=== PATIENT | male | born 1960 | race Caucasian/White ===

== ENCOUNTER → 2022-01-27 10:35 | Outpatient (BNVA) | payer MEDICARE, OTHER, SELFPAY | PROVIDERS: PCP Internal Medicine; Visit Provider Psychiatry & Neurology Neurology | DX: G30.9 Alzheimer's disease, unspecified (principal); F02.80 Dementia in other diseases classified elsewhere, unspecified severity, without behavioral disturbance, psychotic disturbance, mood disturbance, and anxiety; G40.909 Epilepsy, unspecified, not intractable, without status epilepticus | CPT/HCPCS: 99202 ==

== ENCOUNTER → 2022-08-04 09:27 | Outpatient (BNVA) | payer MEDICARE, OTHER, SELFPAY | PROVIDERS: PCP Internal Medicine; Visit Provider Nurse Practitioner Family | DX: G30.9 Alzheimer's disease, unspecified (principal); F02.80 Dementia in other diseases classified elsewhere, unspecified severity, without behavioral disturbance, psychotic disturbance, mood disturbance, and anxiety; G40.909 Epilepsy, unspecified, not intractable, without status epilepticus; L89.203 Pressure ulcer of unspecified hip, stage 3; Z79.899 Other long term (current) drug therapy | CPT/HCPCS: 99212 ==

== ENCOUNTER 2022-09-14 12:42 | Outpatient (RCR) | payer MEDICARE, OTHER, SELFPAY | END 2022-09-28 16:00 | disposition home or self-care (01) | LOC: HO.WCC 12:42 | PROVIDERS: Visit Provider Surgery | DX: L89.154 Pressure ulcer of sacral region, stage 4 (principal); L89.220 Pressure ulcer of left hip, unstageable; L89.210 Pressure ulcer of right hip, unstageable; F03.C0 Unspecified dementia, severe, without behavioral disturbance, psychotic disturbance, mood disturbance, and anxiety; Z79.899 Other long term (current) drug therapy | CPT/HCPCS: 11043; 11044; 87070; 87073; 87076; 87077; 87186; 87205; 88307; 88311; 99214 ==

== ENCOUNTER 2022-09-28 14:34 | Emergency (ER) | payer MEDICARE, OTHER, SELFPAY ==
--- NOTE | 2022-09-28 14:44 | ED_ITS ---
HPI - General Adult General Chief complaint: General Medical Stated complaint: coming from wound care Time Seen by Provider: 09/28/22 14:43 Source: family and EMS Mode of arrival: EMS Limitations: other (Dementia) History of Present Illness HPI narrative: 61-year-old male presents for possible admission for comfort measures only, hospice and case management evaluation. Patient has history of dementia and cachexia. He was sent from wound care with significant wounds requiring wet-to-dry dressing on all wounds. He has bilateral sacral wounds. According to family, they have been managing his care at home with frequent wound checks and wound care. They find that his wounds are getting progressively worse d espite aggressive treatment at home and at outpatient facilities. They feel that his quality of life is significantly diminished any continues to get progressively worse. They are requesting hospice/comfort measures only. They do not wish any aggressive interventions. They are comfortable with minimally invasive treatments. He is DNR DNI. Related Data Home Medications Medication Instructions Recorded Confirmed atorvastatin 40 mg tablet 40 mg PO DAILY 01/02/22 08/04/22 aspirin 81 mg tablet,delayed 81 mg PO DAILY 01/27/22 08/04/22 release ascorbic acid (vitamin C) 500 mg 500 mg PO BID 08/04/22 08/04/22 tablet (Vitamin C) finasteride 5 mg tablet 5 mg PO DAILY 08/04/22 08/04/22 methenamine hippurate 1 gram tablet 1 g PO BID 08/04/22 08/04/22 naproxen 500 mg tablet 500 mg PO BID PRN 08/04/22 08/04/22 tamsulosin 0.4 mg capsule 0.4 mg PO DAILY 08/04/22 08/04/22 Previous Rx's Medication Instructions Recorded memantine 10 mg tablet 10 mg PO BID 90 days #180 tabs 01/27/22 levetiracetam 100 mg/mL oral 1,500 mg (15 mL) PO BID 90 days 05/08/22 solution #2,700 mL cholecalciferol (vitamin D3) 25 25 mcg PO DAILY 30 days #30 tabs 08/04/22 mcg (1,000 unit) tablet polyethylene glycol 3350 17 17 g PO .COMPLEX 30 days #238 grams 08/04/22 gram/dose oral powder (Miralax) hospital bed #1 ea 08/11/22 Allergies Allergy/AdvReac Type Severity Reaction Status Date / Time Penicillins Allergy Intermediate Rash Verified 01/27/22 10:44 Review of Systems Review of Systems: Yes Unobtainable due to mental status PMFSH Past Medical History Medical History Alzheimer's dementia Seizure disorder Surgical History H/O knee surgery H/O shoulder surgery Family History Family History Family/Other Diabetes mellitus Seizure disorder Dementia Social History Social History Alcohol intake: former Patient Tobacco Use Status: Never used Tobacco Advance Directives: Yes Advance Directives Information Provided: No Advance Directives on File: No Physical Exam ED Vital Signs: Vital Signs - 24 hr 09/28/22 14:57 Pulse Rate 73 Blood Pressure 121/42 L BMI result Body Mass Index 15.1 GEN: Cachectic, chronically ill-appearing, nonverbal HEENT: Normocephalic, atraumatic, normal external ears, nose appears normal, no oropharyngeal edema or exudates Eyes: Normal to appearance Neck: Supple, no lymphadenopathy Respiratory: CTAB, nonlabored respirations Cardiovascular: Regular rate and rhythm, no murmurs rubs or gallops Abdomen: Soft, nontender, nondistended, no guarding, no rebound, scaphoid Back: No CVA tenderness Extremities: Right hand swelling Neurologic: No focal neurologic deficits Skin: See photos, decubiti ulcer Skin Other: Course Course Course Narrative: Case management is involved in patient's care. At this time, patient does not appear to be able to go to hospice care at least the facility for financial reasons. Patient will remain in the emergency department overnight pending re- evaluation and to assist with developing an appropriate plan for going home. I will place the patient in physician observation at 6:00 a.m. at night. Ultimate disposition pending tomorrow. Will order a medication reconciliation. Reevaluation(s) Reevaluation #1: Is 10:00 a.m. at night. Patient will be signed out to the oncoming provider pending disposition tomorrow morning Time: 22:00 Medical Decision Making Medical Decision Making MDM Narrative: 61-year-old male with dementia, significant acute but I ulcer presents for evaluation of comfort measures and hospice admission. At this time, I will make the patient DNR DNI. Had extensive conversations with the and son. They would like him placed in a facility near [place]. They are aware that DNR DNI is necessary in order to start these evaluations and management. They are agreeable to minimally invasive types of treatments but certainly no significant procedures, parental feeding, tube feeding, etc.. I have contacted Case Management and put in a hospice consult and case management consultation. Family is quite comfortable with this course of action. Differential Diagnosis Differential Diagnoses: The differential diagnosis associated with the presentation includes (Failure to thrive, dementia, malnutrition, under nutrition, chronic disease) Admission/Observation Consideration of admission/observation: Escalation of care including admission/observation considered Consult Healthcare Provider The the Case Management, hospice team Independent Historian Clinical information obtained from an independent historian. History obtained from or confirmed by: Spouse and EMS External Record Review We need wound care: Dressing changes would include wet to dry. Tests considered The following testing was considered but not selected: None given recommendations for hospice/comfort measures Prescription Management I considered prescription management with: Pain Medication Chronic Conditions Patient?s care impacted by: Other (Dementia) Discharge Plan Discharge Clinical Impression: Alzheimer's dementia, Pressure ulcer of trochanter, stage 3, Sacral decubitus ulcer, stage IV, Cachexia Patient Disposition: Still a Patient Prescriptions: No Action levetiracetam 100 mg/mL solution 1,500 mg PO BID 90 Days Qty: 2700 1RF ([facility]) hospital bed Kit See Rx Instructions .Route Qty: 1 0RF Rx Instructions: w/ pressure relieveing air mattress atorvastatin 40 mg tablet 40 mg PO DAILY aspirin 81 mg tablet,delayed release (DR/EC) 81 mg PO DAILY memantine 10 mg tablet 10 mg PO BID 90 Days Qty: 180 4RF naproxen 500 mg tablet 500 mg PO BID PRN finasteride 5 mg tablet 5 mg PO DAILY methenamine hippurate 1 gram tablet 1 g PO BID ascorbic acid (vitamin C) [Vitamin C] 500 mg tablet 500 mg PO BID tamsulosin 0.4 mg capsule 0.4 mg PO DAILY cholecalciferol (vitamin D3) 25 mcg (1,000 unit) tablet 25 mcg PO DAILY 30 Days Qty: 30 6RF polyethylene glycol 3350 [Miralax] 17 gram/dose powder 17 g PO .COMPLEX 30 Days Qty: 238 3RF Rx Instructions: 17 grams orally prn no BM after 2 days;
[2022-09-28 14:57] VITALS: BP 121/42; PULSE 67; PULSE 73; BMI 15.1
--- NOTE | 2022-09-28 15:21 | PC.NURSE ---
pt brought by ems from wound care clinic per ems. Wounds located in pelvic area. Pt has advanced dementia and unable to respond to questions. Pt is on comfort measures only. This RN and PCT changed patient into hospital attire and warm blankets given. Case management consult and hospice referral put in by MD. and son at bedside and aware of plan of care.
--- NOTE | 2022-09-28 17:44 | MHC.EDTECH ---
Rounded on patient and he is found to be clean/dry. asked if patient was going to eat today and says she normally feeds him soft foods at home, stating he last ate oatmeal this morning. Relayed information to RNs and they are putting in pureed diet for Pt. aware.
--- NOTE | 2022-09-28 18:32 | MHC.CM.ED ---
CM met with patient and family at request of Dr. Fernandez. Pt is lethargic, slightly opens eyes to name. Emaciated. Multiple decubiti in sacral/hip areas. Pt noted with unpleasant odor. Advanced dementia. Family has been caring for him since 2018. Uses W/C. Eats thicken food, oatmeal, mashed potatoes, chopped meats. Needs to be feed. Pt is total care. Did work for [employer]. and son provide all care. Pt has [facility], who now come weekly for wound care. Pt is seen at [facility]. PCP at [facility] in [facility] Darline Barillas MD. cannot find HCP, but states she is the HCP. No HCP on file. [facility] may have on file. Unable to complete with patient due to altered mentation and lethargy. Unable to determine if patient understands what is being said to him. Family is requesting hospice in a facility. , Jennifer, states her has a pension and does not qualify for . CM explained to family that Medicare and commercial insurance do not pay for LTC and that they would need to pay for room and board at any facility and that Hospice would pay for the medical care. Family does not have funds to pay for hospice care in a facility. Patient does not have LTC insurance. Family does not have savings that could pay for care. thought that Medicare would pay. states they will have to take patient home and continue to care for him. Given listing of home health agencies that could help with care, even if they could hire help for 4 hours/week. Also, spoke with family about speaking with other family members to enlist some care to given them help. Referrals made to [facility] financial services for any assistance with possible MH application ( if sure they do not qualify). Referral made to [facility] and [facility] for informational meeting. Pt will stay overnight to provide respite for family and allow them to speak with family members. Dr. Fernandez aware and aggress with plan. Pt now tells me that hospice called her when CM was speaking with the doctor to arrange a meeting for tomorrow with patient and family. returned T/C. CM left a message with [facility] Worker regarding [facility] referrals placed for informational meeting for hospice and that patient would stay overnight in the ED, with expected return home tomorrow. Requested Hospice meet with family in ED. D/C plan: Home with hospice. Family states they will transport patient home.
--- NOTE | 2022-09-28 18:48 | MHC.EDTECH ---
This patient found to be completely incontinent of urine when this tech rounded on Pt. This tech and two other ED techs helped clean Pt, do a full bedding change and reposition Pt with pillows. Warm blankets provided.
--- NOTE | 2022-09-28 20:54 | PC.NURSE ---
Pt repositioned, wound dressings cleaking with foul odor. Right hip unstageable black eschaar cleaned with wound spray and dressed with pink foam, Lg coccyx unstageable with possible tunneling clened with wound spray and dressed wet to dry with pink foam. Medium sized wound to left hip with griffiths tissue unstageable washed with wound spray and dressed with pink foam. Pt groin red and irritated cleaned dried and barrier cream applied. [place] cath applied.
[2022-09-28] MEDS: Acetaminophen Supp 650 MG SUPP.RECT PR (21:15)
[2022-09-28 23:00] VITALS: BP 98/46; PULSE 87; RESP 16
--- NOTE | 2022-09-29 01:39 | MHC.EDTECH ---
pt transferred into hospital bed.
--- NOTE | 2022-09-29 05:30 | PC.NURSE ---
Pt resting in bed, changed over to hospital bed from strecther, turned and repositioned. Pt appears comfortable at this time.
--- NOTE | 2022-09-29 08:32 | PC.NURSE ---
pt is currently resting in the stretcher, respirations shallow, about 12 per min, left eye lid appears swollen and the left arm/hand swelling as well. pt repositioned to his right side and supported with pillows, attempted to feed the pt but pt is not really responding at this time,
[2022-09-29 08:36] VITALS: RESP 12
--- NOTE | 2022-09-29 10:24 | ED.GENADULT ---
HPI - General Adult General Chief complaint: General Medical Stated complaint: coming from wound care Time Seen by Provider: 09/28/22 14:43 Source: family and EMS Mode of arrival: EMS Limitations: other (Dementia) Related Data Home Medications Medication Instructions Recorded Confirmed atorvastatin 40 mg tablet 40 mg PO DAILY 01/02/22 08/04/22 aspirin 81 mg tablet,delayed 81 mg PO DAILY 01/27/22 08/04/22 release ascorbic acid (vitamin C) 500 mg 500 mg PO BID 08/04/22 08/04/22 tablet (Vitamin C) finasteride 5 mg tablet 5 mg PO DAILY 08/04/22 08/04/22 methenamine hippurate 1 gram tablet 1 g PO BID 08/04/22 08/04/22 naproxen 500 mg tablet 500 mg PO BID PRN 08/04/22 08/04/22 tamsulosin 0.4 mg capsule 0.4 mg PO DAILY 08/04/22 08/04/22 Previous Rx's Medication Instructions Recorded memantine 10 mg tablet 10 mg PO BID 90 days #180 tabs 01/27/22 levetiracetam 100 mg/mL oral 1,500 mg (15 mL) PO BID 90 days 05/08/22 solution #2,700 mL cholecalciferol (vitamin D3) 25 25 mcg PO DAILY 30 days #30 tabs 08/04/22 mcg (1,000 unit) tablet polyethylene glycol 3350 17 17 g PO .COMPLEX 30 days #238 grams 08/04/22 gram/dose oral powder (Miralax) hospital bed #1 ea 08/11/22 Allergies Allergy/AdvReac Type Severity Reaction Status Date / Time Penicillins Allergy Intermediate Rash Verified 01/27/22 10:44 [facility] Past Medical History Medical History Alzheimer's dementia Seizure disorder Surgical History H/O knee surgery H/O shoulder surgery Family History Family History Family/Other Diabetes mellitus Seizure disorder Dementia Social History Social History Alcohol intake: former Patient Tobacco Use Status: Never used Tobacco Physical Exam ED Vital Signs: Vital Signs - 24 hr 09/28/22 14:57 09/28/22 23:00 09/29/22 08:36 Pulse Rate 73 87 Respiratory Rate 16 12 Blood Pressure 121/42 L 98/46 L BMI result Body Mass Index 15.1 Medications Administered Discontinued Medications Generic Name Dose Route Start Last Admin Trade Name Noe PRN Reason Stop Dose Admin Acetaminophen 650 mg 09/28/22 21:01 09/28/22 21:15 Acetaminophen Supp 650 Mg Supp.Rect CO 09/28/22 21:02 650 mg ONCE ONE Administration Discharge Plan Discharge Clinical Impression: Alzheimer's dementia, Pressure ulcer of trochanter, stage 3, Sacral decubitus ulcer, stage IV, Cachexia Patient Disposition: Still a Patient Prescriptions: No Action levetiracetam 100 mg/mL solution 1,500 mg PO BID 90 Days Qty: 2700 1RF ([facility]) hospital bed Kit See Rx Instructions .Route Qty: 1 0RF Rx Instructions: w/ pressure relieveing air mattress atorvastatin 40 mg tablet 40 mg PO DAILY aspirin 81 mg tablet,delayed release (DR/EC) 81 mg PO DAILY memantine 10 mg tablet 10 mg PO BID 90 Days Qty: 180 4RF naproxen 500 mg tablet 500 mg PO BID PRN finasteride 5 mg tablet 5 mg PO DAILY methenamine hippurate 1 gram tablet 1 g PO BID ascorbic acid (vitamin C) [Vitamin C] 500 mg tablet 500 mg PO BID tamsulosin 0.4 mg capsule 0.4 mg PO DAILY cholecalciferol (vitamin D3) 25 mcg (1,000 unit) tablet 25 mcg PO DAILY 30 Days Qty: 30 6RF polyethylene glycol 3350 [Miralax] 17 gram/dose powder 17 g PO .COMPLEX 30 Days Qty: 238 3RF Rx Instructions: 17 grams orally prn no BM after 2 days;
--- NOTE | 2022-09-29 10:36 | MHC.CM.ED ---
Patient remains in ER. Per Dr Timmons, patient is actively dying. Dr Timmons will contact hospitalist to admit for [facility]. Patient's , Jennifer, made aware and will be coming to the hospital. Verna from [facility] arranged informational meeting with Jennifer at 11am. Verna updated on patient's condition. Continue to monitor for d/c needs.
--- NOTE | 2022-09-29 10:48 | PC.NURSE ---
this RN checked on pt status, found pt with agonal breathing 3-4 breaths per minute. MD notified. case management reaching out to family to notify of decline.
--- NOTE | 2022-09-29 11:11 | PM.IMHP ---
History of Present Illness Date of Service: 09/29/22 Chief Complaint: Failure to thrive 61 year male with seizure desorder, early and end stage alzheimer dementia, chronic wound previously cared for at home but family but has been progressively declining with unmaneageable wounds and failure to thrive with severe malnutrition and family think his conditioning is continuing to decline along with his quality of life and no longer wants treatment other for comfort only Review of Systems Review of Systems: Yes Unobtainable due to mental status PMFSH Medical History Alzheimer's dementia Seizure disorder Family History Family/Other Diabetes mellitus Seizure disorder Dementia Surgical History H/O knee surgery H/O shoulder surgery Social History Alcohol intake: former Patient Tobacco Use Status: Never used Tobacco Meds Allergies Allergy/AdvReac Type Severity Reaction Status Date / Time Penicillins Allergy Intermediate Rash Verified 01/27/22 10:44 Active Medications: Current Medications Morphine Sulfate (Morphine Sulfate 2 Mg/Ml Cartridge) 2 mg SUBCUT Q5M PRN; Protocol PRN Reason: Chest Pain Home Medications Medication Instructions Recorded Confirmed Last Taken Type atorvastatin 40 mg tablet 40 mg PO DAILY 01/02/22 08/04/22 Unknown History aspirin 81 mg tablet,delayed 81 mg PO DAILY 01/27/22 08/04/22 Unknown History release ascorbic acid (vitamin C) 500 mg 500 mg PO BID 08/04/22 08/04/22 Unknown History tablet (Vitamin C) finasteride 5 mg tablet 5 mg PO DAILY 08/04/22 08/04/22 Unknown History methenamine hippurate 1 gram tablet 1 g PO BID 08/04/22 08/04/22 Unknown History naproxen 500 mg tablet 500 mg PO BID PRN 08/04/22 08/04/22 Unknown History tamsulosin 0.4 mg capsule 0.4 mg PO DAILY 08/04/22 08/04/22 Unknown History Physical Exam Vital Signs and Narrative: Vital Signs: Last Vital Signs Pulse 87 09/28/22 23:00 Resp 12 09/29/22 08:36 BP 98/46 L 09/28/22 23:00 BMI result Body Mass Index 15.1 Assessment and Plan Time Spent With Patient Time: Total time managing care of this patient today ____ minutes. Quality Stroke Does the patient have a stroke diagnosis?: No VTE Prior VTE?: No VTE Risk Level:: Medical - moderate - high VTE Device Contraindication: Treatment Not Indicated VTE Drug Contraindication: Treatment Not Indicated
--- NOTE | 2022-09-29 11:13 | PC.NURSE ---
pt is currently not breathing, claude jay called to bedside and only very faint femoral pulse felt at this time
--- NOTE | 2022-09-29 11:46 | PC.NURSE ---
family at bedside and the pt has , dr cadet at bedside
--- NOTE | 2022-09-29 12:06 | PC.NURSE ---
[employer] called spoke with mina lemus declined [phone]
== END 2022-09-28 15:41 | disposition expired ==
PROVIDERS: Emergency Provider Emergency Medicine
DX: L89.154 Pressure ulcer of sacral region, stage 4 (principal); L89.223 Pressure ulcer of left hip, stage 3; L89.213 Pressure ulcer of right hip, stage 3; G30.9 Alzheimer's disease, unspecified; F02.80 Dementia in other diseases classified elsewhere, unspecified severity, without behavioral disturbance, psychotic disturbance, mood disturbance, and anxiety; Z79.82 Long term (current) use of aspirin; Z79.899 Other long term (current) drug therapy
CPT/HCPCS: 99284

== ENCOUNTER → 2022-09-28 15:41 | Outpatient (BNV) | payer MEDICARE, OTHER, SELFPAY | PROVIDERS: Emergency Provider Emergency Medicine; Visit Provider Internal Medicine | DX: Z51.5 Encounter for palliative care (principal) | CPT/HCPCS: 99499 ==